=== PATIENT | female | born 1980 | race Caucasian/White ===

== ENCOUNTER 2020-06-27 21:47 | Emergency (ER) | payer OTHER ==
[2020-06-27 23:25] LABS: BASOPHIL 0.7 % (0-2); EOSINOPHIL 1.4 % (0-5); HCT 37.3 % (37.0-47.0); LYMPHOCYTE 44.2 % (15-48); MCHC 34.9 g/dL (32.0-36.0); MPV 10.5 fL (6.0-9.5); NEUTROPHIL 47.4 % (41-80); NRBC 0; PLT 249 K/uL (150-400); RBC 4.19 M/uL (4.20-5.40); RDW 12.2 % (11.5-14.0)
== END 2020-06-28 01:43 | disposition home or self-care (01) ==
LOC: FER 21:47
PROVIDERS: Emergency Medicine
DX: N94.6 Dysmenorrhea, unspecified (principal)
CPT/HCPCS: 36415; 85025; 99284